=== PATIENT | male | born 1975 | race Caucasian/White ===

== ENCOUNTER 2016-11-07 12:09 | Emergency (ER) | payer OTHER ==
[~2016-11-07 12:09] MED LIST: Sodium Chloride 0.9% 100 ML BAG ONE
[2016-11-07] MEDS ORDERED: cefTRIAXone\\ROCEPHIN 1 GM VIAL ONE (13:25)
[2016-11-07] MEDS ORDERED: Phenergan/Codeine 10-6.25mg/5ml UDCUP ONE (13:25)
[2016-11-07] MEDS ORDERED: HYDROcodone/Acetaminophen 10/325 mg Tablet ONE (13:25)
[2016-11-07] MEDS ORDERED: Dexamethasone 10 MG/ML VIAL ONE (13:25)
[2016-11-07] MEDS ORDERED: Ondansetron HCl/PF 4 MG/2 ML Vial ONE (13:26)
[2016-11-07] MEDS ORDERED: methylPREDNISolone Sod Succ/PF 125 MG/2 ML VIAL ONE (13:26)
[2016-11-07] MEDS ORDERED: Ketorolac Tromethamine 30 MG/ML VIAL ONE (13:26)
[2016-11-07 13:45] LABS: Band 4 % (5-11); Eosinophils 3 % (0-10); Lymphocytes 28 % (21-51); MDiff Complete? YES; Mean Corpuscular Hemoglobin 31.7 pg (27.0-31.0); Mean Corpuscular Volume 93.3 fl (80.0-94.0); Mean Platelet Volume 9.4 fL (7.4-10.4); Monocytes 9 % (0-10); Neutrophil 56 % (42-75); PLT Morphology Comment Appears Adequate; Platelet Count 177 thou/uL (130-400); RBC Distribution Width 11.7 % (11.5-14.5); Red Blood Cell (RBC) Count 4.72 mill/uL (4.70-6.10); White Blood Cell (WBC) Count 6.3 thou/uL (4.8-10.8)
[2016-11-07 13:48] LABS: ALT (SGPT) 19 U/L (0-55); AST (SGOT) 18 U/L (5-34); Albumin 3.9 g/dL (3.5-5.0); Alkaline Phosphatase 110 U/L (40-150); Anion Gap 15 mmol/L (10-20); BUN (Urea Nitrogen) 9 mg/dL (8.9-20.6); Bilirubin, Total 0.4 mg/dL (0.2-1.2); Calc. Creatinine Clearance 0 mL/min (70-130); Calcium 9.1 mg/dL (7.8-10.44); Carbon Dioxide 27 mmol/L (22-29); Chloride 103 mmol/L (98-107); Estimated GFR-MDRD Greater than 90; Globulin 2.5 g/dL (2.4-3.5); Glucose 101 mg/dL (70-105); Potassium 3.7 mmol/L (3.5-5.1); Protein, Total 6.4 g/dL (6.0-8.3); Sodium 141 mmol/L (136-145)
--- NOTE | 2016-11-07 13:59 | RAD ---
FRONTAL VIEW CHEST: Date: 11/07/16 COMPARISON: 09/13/15. INDICATINO: Dyspnea. FINDINGS: Ornamentation overlying the central chest bilaterally limits detail. No consolidation, effusion, or pneumothorax. Cardiac silhouette is normal size. There is a focal density overlying the inferolatera l right hemithorax which may be related to superimposed body wall soft tissues. This may be further confirmed with 2 view chest as clinically necessary. IMPRESSION: No focal consolidation. POS: CLAUDIO
== END 2016-11-07 14:55 | disposition home or self-care (01) ==
LOC: MADERS 12:09
DX: J20.9 Acute bronchitis, unspecified (principal); J45.909 Unspecified asthma, uncomplicated; F17.200 Nicotine dependence, unspecified, uncomplicated; Z79.899 Other long term (current) drug therapy
CPT/HCPCS: 36415; 71010; 80053; 85025; 87040; 87081; 87430; 94640; 96365; 96375; J0696; J1100; J1885; J2405; J2930; J7050; J7620

== ENCOUNTER 2017-03-18 20:06 | Emergency (ER) | payer BC, SELFPAY ==
[2017-03-18] MEDS ORDERED: Amoxicillin/Potassium Clav 875 MG TAB ONE (20:25)
[2017-03-18] MEDS ORDERED: Ibuprofen 800 MG TAB ONE (20:25)
== END 2017-03-18 20:55 | disposition home or self-care (01) ==
LOC: MADERS 20:06
DX: L03.211 Cellulitis of face (principal); J45.909 Unspecified asthma, uncomplicated; F17.210 Nicotine dependence, cigarettes, uncomplicated; Z79.899 Other long term (current) drug therapy
CPT/HCPCS: 99281

== ENCOUNTER 2017-09-16 19:34 | Emergency (ER) | payer SELFPAY ==
[2017-09-16] MEDS ORDERED: HYDROcodone/Acetaminophen 10/325 mg Tablet ONE (20:01)
[2017-09-16] MEDS ORDERED: Cephalexin 500 MG CAP ONE (20:01)
== END 2017-09-16 20:09 | disposition home or self-care (01) ==
LOC: MADERS 19:34
DX: K02.9 Dental caries, unspecified (principal); J44.9 Chronic obstructive pulmonary disease, unspecified; F17.210 Nicotine dependence, cigarettes, uncomplicated; Z79.899 Other long term (current) drug therapy
CPT/HCPCS: 99282

== ENCOUNTER 2019-05-23 19:40 | Emergency (ER) | payer SELFPAY ==
[2019-05-23] MEDS ORDERED: Triamcinolone 40 MG/ML VIAL ONE (20:01)
--- NOTE | 2019-05-23 20:46 | RAD ---
EXAM: Two views chest PROVIDED CLINICAL HISTORY: Dyspnea. Swelling and pain to right knee. COMPARISON: 09/13/2015. FINDINGS: Cardiac silhouette and pulmonary vasculature are within normal limits. The lungs are clear. There is a stable mild lower wedge-shaped thoracic vertebral body fracture. Chest is stable compared to prior exam. IMPRESSION: No acute cardiopulmonary process.
== END 2019-05-23 20:50 | disposition home or self-care (01) ==
LOC: MADERS 19:40
DX: J45.901 Unspecified asthma with (acute) exacerbation (principal); J06.9 Acute upper respiratory infection, unspecified; M70.41 Prepatellar bursitis, right knee; F17.210 Nicotine dependence, cigarettes, uncomplicated; Z79.51 Long term (current) use of inhaled steroids
CPT/HCPCS: 71046; 96372; J3301; J7620

== ENCOUNTER 2019-08-25 19:55 | Emergency (ER) | payer OTHER, SELFPAY ==
[2019-08-25] MEDS ORDERED: Fluorescein Opthalmic Strip ONE (20:13)
[2019-08-25] MEDS ORDERED: Tetracaine 0.5% OPHTH SOLN/PF 4 ML BOT ONE (20:13)
[2019-08-25] MEDS ORDERED: Erythromycin Base 0.5% Ophth Oint 3.5 gm Tube ONE (20:44)
[2019-08-25] MEDS ORDERED: traMADol HCl 50 MG TAB ONE (21:02)
== END 2019-08-25 21:12 | disposition home or self-care (01) ==
LOC: MADERS 19:55
DX: T15.02XA Foreign body in cornea, left eye, initial encounter (principal); J44.9 Chronic obstructive pulmonary disease, unspecified; F17.210 Nicotine dependence, cigarettes, uncomplicated
CPT/HCPCS: 65222

== ENCOUNTER 2020-01-05 16:22 | Emergency (ER) | payer OTHER, SELFPAY | END 2020-01-05 17:25 | disposition home or self-care (01) | LOC: MADERS 16:22 | DX: M70.41 Prepatellar bursitis, right knee (principal); J44.9 Chronic obstructive pulmonary disease, unspecified; F17.210 Nicotine dependence, cigarettes, uncomplicated | CPT/HCPCS: 99283 ==

== ENCOUNTER 2020-05-16 11:58 | Emergency (ER) | payer SELFPAY ==
[2020-05-16] MEDS ORDERED: Sodium Chloride 0.9% 1,000 ML ONE ×2 (12:25→13:39)
[2020-05-16] MEDS ORDERED: Iopamidol 370 76% 125 ML VIAL FS ONE (12:52)
[2020-05-16 13:31] LABS: #Basophils 0.1 thou/uL (0.0-0.2); #Eosinphils 0.1 thou/uL (0.0-0.7); #Lymphocytes 1.2 thou/uL (1.20-3.40); #Monocytes 1.2 thou/uL (0.11-0.59); #Neutrophils 6.2 thou/uL (1.40-6.50); %Eosinophils 0.9 % (0.0-10.0); %Lymphocytes 13.2 % (21.0-51.0); %Monocytes 13.6 % (0.0-10.0); %Neutrophils 71.3 % (42.0-75.0); Hemoglobin 12.5 g/dL (14.0-18.0); Mean Corpuscular HGB CONC 32.5 g/dL (32.0-36.0); Mean Corpuscular Hemoglobin 30.3 pg (27.0-31.0); Mean Corpuscular Volume 93.3 fL (78.0-98.0); Mean Platelet Volume 9.2 fL (7.4-10.4); Platelet Count 238 thou/uL (130-400); RBC Distribution Width 11.9 % (11.5-14.5); Red Blood Cell (RBC) Count 4.13 mill/uL (4.70-6.10); White Blood Cell (WBC) Count 8.7 thou/uL (4.8-10.8)
[2020-05-16] MEDS ORDERED: Cefepime 2 GM VIAL ONE (13:39)
[2020-05-16] MEDS ORDERED: Sodium Chloride 0.9% 100 ML ONE (13:39)
[2020-05-16] MEDS ORDERED: Azithromycin 500 MG VIAL ONE (13:43)
[2020-05-16] MEDS ORDERED: Sodium Chloride 0.9% 250 ML 250 ML ONE (13:43)
[2020-05-16] MEDS ORDERED: Sodium Chloride 0.9% 500 ML ONE ×2 (13:44→13:46)
[2020-05-16] MEDS ORDERED: Vancomycin HCl 750 MG VIAL ONE (13:45)
[2020-05-16 13:48] LABS: ALT (SGPT) 26 U/L (8-55); AST (SGOT) 20 U/L (5-34); Albumin 3.3 g/dL (3.5-5.0); Alkaline Phosphatase 109 U/L (40-110); Anion Gap 15 mmol/L (10-20); BUN (Urea Nitrogen) 9 mg/dL (8.9-20.6); Bilirubin, Total 0.2 mg/dL (0.2-1.2); Calc. Creatinine Clearance 0 mL/min (70-130); Calcium 8.5 mg/dL (7.8-10.44); Carbon Dioxide 32 mmol/L (22-29); Chloride 95 mmol/L (98-107); Estimated GFR-MDRD Greater than 90; Globulin 2.8 g/dL (2.4-3.5); Glucose 97 mg/dL (70-105); Potassium 4.4 mmol/L (3.5-5.1); Protein, Total 6.1 g/dL (6.0-8.3); Sodium 138 mmol/L (136-145)
--- NOTE | 2020-05-16 14:18 | CT ---
CT CHEST WITHOUT CONTRAST: 05/16/20 PROVIDED CLINICAL HISTORY: Cough, shortness of breath and hypoxia. FINDINGS: The heart, pericardium and great vessels are suboptimally evaluated in the absence of IV contrast mat erial but demonstrate an unremarkable unenhanced CT appearance. There is no evidence for thoracic lymph node enlargement, with limitations due to lack of IV contrast material. The airway appears patent and of normal caliber. There are occasional multifocal tree-in-bud nodules present in both lungs, with patchy ground glass o pacities seen within the lateral left upper lobe. No lobar consolidation. The visualized portions of the upper abdomen appear unremarkable. The osseous structures demonstrate no concerning lytic or blastic lesions. IMPRESSION: Findings compatible with infectious pneumonitis. Atypical organism should be considered. POS: ANGEL
[2020-05-16] MEDS ORDERED: Dexamethasone 10 MG/ML VIAL ONE (14:27)
--- NOTE | 2020-05-16 14:43 | CT ---
CTA CHEST WITH CONTRAST: 05/16/20 Axial tomograms obtained following angio protocol with multiplanar reconstruction and 3D postprocessi ng. FINDINGS: Pulmonary arteries show adequate opacification. No evidence of proximal pulmonary embolus to the segm ental level. More peripheral emboli cannot be definitely excluded due to diffuse opacification. Thoracic aorta is unremarkable. No dissection. There is mediastinal adenopathy. paratracheal lymph no rod measure up to 1.5 cm. Carinal lymph nodes measure up to 2 cm. there is a right hilar lymph node w hich measures 2.3 cm in AP dimension. There are other mildly enlarged bilateral hilar lymph nodes. Th e lungs show no infiltrate or effusion. A pleural based nodule opacity in the posterior right upper l brock may be scarring. There is a nodular opacity in the right upper lobe peripherally seen on image 43 axial which measures approximately 7 mm. there is interstitial prominence bilaterally with hazy grou nd glass infiltrate in the peripheral left upper lung abutting the pleural surface. No effusion. Uppe r abdomen unremarkable. Osseous structures show mild wedging of the T11 vertebrae which does not appe ar acute. IMPRESSION: 1. No evidence of proximal pulmonary embolus. 2. Lung munguia show bilateral diffuse hazy interstitial thickening with nodularity in the right lung as described above. There is hazy nodular infiltrate in the peripheral left upper lobe. Consider follow-up CT as indicated. POS: AGW
[2020-05-16 14:55] LABS: Bicarbonate (HCO3v) 34.2 mmol/L (22.0-28.0); CO2 Tension (PvCO2) 80.1 mmHg (40.0-50.0); Chloride 101 mmol/L (98-107); Hemoglobin - Calc 13.8 g/dL (14.0-18.0); Potassium 4.4 mmol/L (3.5-5.1); Sodium 141 mmol/L (138-145); T. Carbon Dioxide 36.7 mmol/L (22.0-28.0); vO2 Saturation-calc 70.1 % (60.0-85.0)
== END 2020-05-16 15:32 | disposition short-term general hospital (02) ==
LOC: MADERS 11:58
DX: A41.9 Sepsis, unspecified organism (principal); J18.9 Pneumonia, unspecified organism; J44.9 Chronic obstructive pulmonary disease, unspecified; F17.210 Nicotine dependence, cigarettes, uncomplicated; Z79.899 Other long term (current) drug therapy
CPT/HCPCS: 71250; 71275; 80053; 82330; 82803; 83605; 84484; 85025; 87040; 87804; 93005; 94660; 96365; 96366; 96368; 96375; J0456; J0692; J1100; J3370; J3490; J7030; J7050; Q9967

== ENCOUNTER 2022-02-15 13:16 | Emergency (ER) | payer SELFPAY ==
[2022-02-15 13:53] LABS: #Basophils 0.2 thou/uL (0.0-0.2); #Eosinphils 0.3 thou/uL (0.0-0.7); #Lymphocytes 1.9 thou/uL (1.20-3.40); #Monocytes 0.7 thou/uL (0.11-0.59); #Neutrophils 4.6 thou/uL (1.40-6.50); %Basophils 2.1 % (0.0-1.0); %Eosinophils 3.8 % (0.0-10.0); %Monocytes 8.9 % (0.0-10.0); %Neutrophils 60.3 % (42.0-75.0); Hemoglobin 14.9 g/dL (14.0-18.0); Mean Corpuscular HGB CONC 32.4 g/dL (32.0-36.0); Mean Corpuscular Hemoglobin 29.3 pg (27.0-31.0); Mean Corpuscular Volume 90.4 fL (78.0-98.0); Mean Platelet Volume 10.4 fL (7.4-10.4); Platelet Count 224 thou/uL (130-400); RBC Distribution Width 11.7 % (11.5-14.5); Red Blood Cell (RBC) Count 5.09 mill/uL (4.70-6.10); White Blood Cell (WBC) Count 7.6 thou/uL (4.8-10.8)
[2022-02-15] MEDS ORDERED: Sodium Chloride 0.9% 100 ML ONE (14:02)
[2022-02-15] MEDS ORDERED: Dexamethasone 10 MG/ML VIAL ONE (14:02)
[2022-02-15] MEDS ORDERED: Magnesium 2 GM/50 ML BAG (IN WATER) ONE (14:02)
[2022-02-15] MEDS ORDERED: Sodium Chloride 0.9% 250 ML 250 ML ONE (14:02)
[2022-02-15] MEDS ORDERED: cefTRIAXone\\ROCEPHIN 2 GM VIAL ONE (14:02)
[2022-02-15] MEDS ORDERED: Azithromycin 500 MG VIAL ONE (14:02)
[2022-02-15 14:10] LABS: ALT (SGPT) 44 U/L (8-55); AST (SGOT) 33 U/L (5-34); Albumin 4.1 g/dL (3.5-5.0); Alkaline Phosphatase 68 U/L (40-110); Anion Gap 16 mmol/L (10-20); BUN (Urea Nitrogen) 17 mg/dL (8.9-20.6); Bilirubin, Total Less than 0.2 mg/dL (0.2-1.2); Calc. Creatinine Clearance 0 mL/min (70-130); Calcium 9.2 mg/dL (7.8-10.44); Carbon Dioxide 30 mmol/L (22-29); Chloride 99 mmol/L (98-107); Estimated GFR 109; Glucose 123 mg/dL (70-105); Potassium 4.4 mmol/L (3.5-5.1); Protein, Total 6.1 g/dL (6.0-8.3); Sodium 141 mmol/L (136-145)
[2022-02-15] MEDS ORDERED: Sodium Chloride 0.9% 1,000 ML ONE ×2 (14:16→19:07)
[2022-02-15] MEDS ORDERED: Nicotine 7 MG PATCH ONE (16:43)
[2022-02-15] MEDS ORDERED: Ketorolac Tromethamine 30 MG/ML VIAL ONE (16:43)
[2022-02-15 16:49] LABS: Bilirubin Negative (Negative); Blood, Urine Negative (Negative); Clarity Clear (Clear); Glucose, Urine (Dipstick) 100 mg/dL (Negative); Ketone, Urine Negative (Negative); Leukocyte Negative (Negative); Nitrite Negative (Negative); Protein, Urine (Dipstick) 30 mg/dL (Neg-Trace); Specific Gravity, Urine 1.015 (1.005-1.030); Urobilinogen 0.2 mg/dL (Less than 2)
[2022-02-15 16:54] LABS: Bacteria/HPF Rare-Few HPF (None Seen); RBC/HPF None Seen HPF (0-3); Squamous Epithelial 0-3 HPF (0-3); WBC/HPF None Seen HPF (0-3)
[2022-02-15 17:03] LABS: Amphetamine Not Detected (NotDetected); Barbiturates Screen Not Detected (NotDetected); Benzodiazepine Screen Detected (NotDetected); Cocaine Metabolite Screen Not Detected (NotDetected); Medtox Control Line Valid? VALID (VALID); Methadone Not Detected (NotDetected); Methamphetamine Not Detected (NotDetected); Opiate Screen Detected (NotDetected); Oxycodone Screen Not Detected (NotDetected); Phencyclidine (PCP) Not Detected (NotDetected); THC/Cannabinoid Screen Detected (NotDetected); Tricyclic Screen Not Detected (NotDetected)
[2022-02-15] MEDS ORDERED: Albuterol Sulfate 2.5 mg/0.5 ml Neb ONE (19:56)
[2022-02-15] MEDS ORDERED: Acetaminophen 500 MG TAB ONE (20:18)
== END 2022-02-15 20:43 | disposition short-term general hospital (02) ==
LOC: MADERS 13:16
DX: J44.1 Chronic obstructive pulmonary disease with (acute) exacerbation (principal); I10 Essential (primary) hypertension; J44.9 Chronic obstructive pulmonary disease, unspecified; F17.210 Nicotine dependence, cigarettes, uncomplicated; Z79.899 Other long term (current) drug therapy
CPT/HCPCS: 36415; 71045; 80053; 80306; 81003; 81015; 83605; 84484; 85025; 85379; 87040; 93005; 94640; 94760; J0456; J0696; J1100; J1885; J3475; J3490; J7050; J7611; J7620